=== PATIENT | male | born 1970 | race Caucasian/White ===

== ENCOUNTER 2020-03-02 11:29 | Outpatient (NON) | payer OTHER, SELFPAY ==
[2020-03-03 21:15] LABS: SARS-CoV-2 RNA PCR Negative
== END 2020-03-02 11:30 ==
PROVIDERS: PCP Family Medicine; Visit Provider Family Medicine
DX: Z20.828 Contact with and (suspected) exposure to other viral communicable diseases (principal); R68.89 Other general symptoms and signs
CPT/HCPCS: 87635; C9803; U0003

== ENCOUNTER 2023-12-25 00:49 | Day surgery (SDC) | payer OTHER, SELFPAY ==
[2023-12-07 08:51] VITALS: BMI 32.5
[2023-12-25 06:40] VITALS: BP 140/72; PULSE 80; RESP 16; TEMP 35.9; O2SAT 99; BMI 31.8
[2023-12-25] MEDS: LACTATED RINGERS 1,000 ML 150 ML IV CONT (06:55)
--- NOTE | 2023-12-25 07:21 | P.PNAN_ITS ---
Anes - Eval Final PreProcedure Day of Procedure 12/25/23 07:21 Patient weight: obese Heart: regular rate and rhythm Lungs: clear to auscultation and normal air movement Airway: Mallampati scale class II Neurological: alert and oriented Last oral intake: >/= 8 hours ASA classification: II Emergent: no Anesthetic plan: proceed Anesthesia type and monitoring: general GIVS Results Review: All pre-operative results and documents have been reviewed as part of the pre- operative evaluation. Informed Consent: The patient's anesthetic plan and its attendant risks and benefits were discussed with the patient/family/POA. Questions were solicited and answers provided to the satisfaction of the patient/family/POA.
--- NOTE | 2023-12-25 07:25 | WPDANESEPP ---
Anes - Eval Pre Procedure Procedure: Operation Date: 12/25/23 08:00 Proposed Procedures p Screening Colonoscopy - José Antonio Bowling DO Date/Time: 12/25/23 07:25 Pre Op Diagnosis: Screening for malignant neoplasm of colon Patient Data Age: 53 Gender: M Height: 1.88 m Weight: 112.4 kg Last Vital Signs Temp 35.9 C L 12/25/23 06:40 Pulse 80 12/25/23 06:40 Resp 16 12/25/23 06:40 BP 140/72 12/25/23 06:40 Pulse Ox 99 12/25/23 06:40 O2 Del Method Room Air 12/25/23 06:40 Allergies Allergy/AdvReac Type Severity Reaction Status Date / Time No Known Allergies Allergy Verified 12/25/23 06:46 Home Medications Medication Instructions Recorded Confirmed Type metoprolol tartrate 50 mg tablet 50 mg PO BID #180 tabs 02/22/23 12/07/23 Rx valsartan 320 See Rx Instructions .Route 05/22/23 12/07/23 Rx mg-hydrochlorothiazide 12.5 mg .COMPLEX #90 tabs tablet omeprazole 20 mg capsule,delayed See Rx Instructions .Route 10/23/23 12/07/23 Rx release .COMPLEX #90 caps sildenafil 100 mg tablet 100 mg PO DAILY PRN sexual 10/23/23 12/07/23 Rx activity #20 tabs atorvastatin 80 mg tablet See Rx Instructions .Route 11/16/23 12/07/23 Rx .COMPLEX #90 tabs Patient hx anesthesia problems: none Family hx anesthesia problems: none Results Review: All pre-operative results and documents have been reviewed as part of the pre-operative evaluation. 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 Psychophysiological insomnia Ulcer of esophagus without bleeding Umbilical hernia without obstruction and without gangrene Surgical History Surgical History H/O umbilical hernia repair Family History Family History Grandparent Hypertension Cerebrovascular accident, Onset Age: 60 Mother Hypertension Family history of elevated blood lipids Social History Social History Social History: Years smoked: 5 Smoking status: Never smoker Smokeless tobacco user: chewing tobacco Second hand tobacco smoke exposure: No Smoking end date: 04/09/22 Alcohol intake: current Drinks per week: 12 Substance use: never Substance use type: does not use Do You Feel Safe in your Home?: Yes Lack of Transportation: No Lack of Food: Never True Current Housing: I Have Housing Concerned About Future Housing: No Difficulty Paying Gas/Electric Bills: No Difficulty Paying for Meds: No Currently Unemployed: No Education: High School Diploma/GED Difficulty w/ Childcare or Family Care: No Living arrangements: with family Occupation/Education: occupation Additional occupation/education comments: Program Attendant Gender identity (if verbalized by the patient): Male Sexual Orientation (if Verbalized by the Patient): Straight or Heterosexual Spiritual care concerns: No Exam Day of Procedure 12/25/23 07:25 Patient weight: normal Heart: regular rate and rhythm Lungs: clear to auscultation and normal air movement Airway: Mallampati scale class II Neurological: alert and oriented
--- NOTE | 2023-12-25 08:02 | PM.IMHP ---
H&P: HPI History of Present Illness Date/Time: 12/25/23 08:02 Chief Complaint: Screening for colorectal cancer Narrative: this is a 53-year-old man who presents for colonoscopy. He denies any family history of colon cancer or any hematochezia or melena. He has had Cologuard test in the past which have been negative. He is slightly anemic and his PCP wanted him to have a colonoscopy. Review of Systems Review of Systems: All systems reviewed & are unremarkable except as noted in HPI and below Constitutional: Constitutional: Denies chills, Denies fever(s), Denies headache(s) and Denies weight loss Eyes: Eyes: Denies change in vision ENT: Denies dizziness, Denies headache(s), Denies neck mass and Denies throat swelling Cardiovascular: Cardiovascular: Denies chest pain, Denies lightheadedness and Denies dyspnea Respiratory: Respiratory: Denies cough, Denies dyspnea and Denies wheezing Gastrointestinal: Gastrointestinal: Denies abdominal pain, Denies change in bowel habits, Denies nausea and Denies vomiting Genitourinary: Genitourinary: Denies hematuria and Denies dysuria Musculoskeletal: Musculoskeletal: Reports as per HPI Integumentary/Breasts: Skin/Breast: Reports as per HPI Neurologic: Denies dizziness and Denies headache(s) Allergic/Immunologic: Allergic/Immunologic: Denies throat swelling and Denies wheezing PMF Past Medical History Medical History Chronic fatigue Erectile dysfunction Erectile dysfunction Essential hypertension FHx: rheumatoid arthritis GERD (gastroesophageal reflux disease) HTN (hypertension) Mixed hyperlipidemia 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 Psychophysiological insomnia Ulcer of esophagus without bleeding Umbilical hernia without obstruction and without gangrene Surgical History Surgical History H/O umbilical hernia repair Family History Family History Grandparent Hypertension Cerebrovascular accident, Onset Age: 60 Mother Hypertension Family history of elevated blood lipids Social History Social History Social History: Years smoked: 5 Smoking status: Never smoker Smokeless tobacco user: chewing tobacco Second hand tobacco smoke exposure: No Smoking end date: 04/09/22 Alcohol intake: current Drinks per week: 12 Substance use: never Substance use type: does not use Do You Feel Safe in your Home?: Yes Lack of Transportation: No Lack of Food: Never True Current Housing: I Have Housing Concerned About Future Housing: No Difficulty Paying Gas/Electric Bills: No Difficulty Paying for Meds: No Currently Unemployed: No Education: High School Diploma/GED Difficulty w/ Childcare or Family Care: No Living arrangements: with family Occupation/Education: occupation 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 Gender identity (if verbalized by the patient): Male Sexual Orientation (if Verbalized by the Patient): Straight or Heterosexual Spiritual care concerns: No Meds Home Medications and Allergies Home Medications Medication Instructions Recorded Confirmed Type metoprolol tartrate 50 mg tablet 50 mg PO BID #180 tabs 02/22/23 12/07/23 Rx valsartan 320 See Rx Instructions .Route 05/22/23 12/07/23 Rx mg-hydrochlorothiazide 12.5 mg .COMPLEX #90 tabs tablet omeprazole 20 mg capsule,delayed See Rx Instructions .Route 10/23/23 12/07/23 Rx release .COMPLEX #90 caps sildenafil 100 mg tablet 100 mg PO DAILY PRN sexual 10/23/23 12/07/23 Rx activity #20 tabs atorvastatin 80 mg tablet See Rx Instructions .Route 11/16/23 12/07/23 Rx .COMPLEX #90 tabs Allergies Allergy/AdvReac Type Severity Reaction S
[2023-12-25 08:38] VITALS: BP 103/58; PULSE 75; RESP 16; O2SAT 99
[2023-12-25 08:48] VITALS: BP 103/58; PULSE 72; RESP 17; O2SAT 100
[2023-12-25 08:58] VITALS: BP 102/59; PULSE 69; RESP 19; O2SAT 100
== END 2023-12-25 09:08 | disposition home or self-care (01) ==
PROVIDERS: PCP Family Medicine; Visit Provider Surgery
PROC: 0DJD8ZZ Inspection of Lower Intestinal Tract, Via Natural or Artificial Opening Endoscopic (ICD-10-PCS; CPT 45378; principal; 2023-12-25 08:00)
DX: Z12.11 Encounter for screening for malignant neoplasm of colon (principal); D12.5 Benign neoplasm of sigmoid colon; I10 Essential (primary) hypertension; E78.2 Mixed hyperlipidemia; K21.9 Gastro-esophageal reflux disease without esophagitis; F17.220 Nicotine dependence, chewing tobacco, uncomplicated; E66.9 Obesity, unspecified; Z68.31 Body mass index [BMI] 31.0-31.9, adult
CPT/HCPCS: 45385; 88305; J2001; J2704; J7120